=== PATIENT | female | born 1980 | race Caucasian/White ===

== ENCOUNTER 2018-04-21 11:00 | Inpatient (IN) ==
--- NOTE | 2018-04-21 11:35 | ED ---
HPI General Chief Complaint: Extremity Injury, Lower Stated Complaint: Leg Ankle Complaint Time Seen by Provider: 04/21/18 11:24 Source: patient Mode of arrival: ambulatory Limitations: no limitations History of Present Illness HPI Narrative: Patient is a 37-year-old female presenting to the emergency department for evaluation of left ankle pain. Patient went to [facility] today with the same complaint, she states she rolled her ankle on Saturday night , on Saturday she spent most of the day in bed and was nonweightbearing. When she presented to [facility] they performed x-rays which showed a distal tibia and fibula fracture, she was sent to the emergency department due to it being a possible surgical case. Patient states she has no pain at rest, she borrowed a pair of crutches from a friend in order to ambulate with. Patient denies any weakness or numbness. There were no other injuries to report. Patient denies any significant past medical history. Place: Reports home Relieving factors: immobilization Exacerbating factors: weight bearing Context: Reports walking Associated symptoms: Reports swelling and unable to bear weight Other symptoms: Reports none Treatments prior to arrival: Reports NSAIDS Related Data Home Medications Medication Instructions Recorded Confirmed No Known Home Medications 04/21/18 04/21/18 Allergies Allergy/AdvReac Type Severity Reaction Status Date / Time No Known Allergies Allergy Verified 04/21/18 11:10 Review of Systems ROS: all other systems reviewed are negative [facility] Medical History Medical History Patient denies medical problems (Acute) Surgical History Surgical History No history of previous surgery (Acute) Social History Social History Substance History: No History of Abuse Smoking Status: Light tobacco smoker Tobacco Type: Cigarettes How Often Do You Have a Drink Containing Alcohol: Monthly or less Recent Travel [facility] within the Last 8 Weeks: No Recent Out of Country Travel within the Last 8 Weeks: No Immunization History Tetanus Immunization: >5 Years Exam Narrative Exam Narrative: GENERAL: Well-developed, well-nourished, alert female. Presenting in no acute distress. SKIN: Focused skin assessment warm/dry. HEAD: Atraumatic. Normocephalic. EYES: Pupils equal and round. No scleral icterus. No injection or drainage. ENT: No nasal bleeding or discharge. Mucous membranes pink and moist. NECK: Trachea midline. No JVD. CARDIOVASCULAR: Regular rate and rhythm. No murmur appreciated. RESPIRATORY: No accessory muscle use. Clear to auscultation. Breath sounds equal bilaterally. GASTROINTESTINAL: Abdomen soft, non-tender, nondistended. Hepatic and splenic margins not palpable. MUSCULOSKELETAL: No obvious deformities. No clubbing. No cyanosis. Edema to left ankle diffusely, 2+ dorsalis pedal pulse, brisk less than 3-second capillary refill. NEUROLOGICAL: Awake and alert. No obvious cranial nerve deficits. Motor grossly within normal limits. Normal speech. PSYCHIATRIC: Appropriate mood and affect; insight and judgment normal. Course Initial Documented Vital Signs Temperature 98.3 F 04/21/18 11:05 Pulse Rate 85 04/21/18 11:05 Respiratory Rate 18 04/21/18 11:05 Blood Pressure 148/77 H 04/21/18 11:05 Pulse Oximetry 98 04/21/18 11:05 Last Documented Vital Signs Temperature 98.3 F 04/21/18 11:05 Pulse Rate 98 H 04/21/18 11:28 Respiratory Rate 16 04/21/18 11:28 Blood Pressure 123/66 04/21/18 11:28 Pulse Oximetry 99 04/21/18 11:28 Medical Decision Making MDM Narrative Medical decision making narrative: Patient is a well-appearing 37-year-old female presenting with likely ankle fracture from [facility]. Patient is neurovascularly intact. Will obtain basic labs and repeat imaging. Patient denies pain at this time. She was encouraged to notify nursing if pain worsened. Labs reviewed, no acute findings. X-ray shows a distal tibial fracture as well as a medial malleolus fracture. Discussed with Alexis ARMSTRONG with Dr. Nogueira, he stated to keep patient n.p.o. after midnight for OR tomorrow and admit to medicine. Splint was placed by orthotech. [facility] paged for admission and patient made aware of clinical findings and plan of care. Dr. Ritchie accepted admit. Orders placed. Medical Screen Exam Complete: Yes Emergency Medical Condition: Yes Differential Diagnosis Differential Diagnosis: Fracture versus sprain versus strain versus contusion versus other Lab Data Lab results reviewed: Yes I reviewed the patient's lab results. Result diagrams: 04/21/18 11:39 04/21/18 11:39 POC Results POC Urine Results Negative Lab Results 04/21/18 04/21/18 04/21/18 Range/Units 11:39 11:39 11:39 WBC 9.8 (4.0-11.0) th/mm3 RBC 4.09 (4.00-5.30) mil/mm3 Hgb 12.8 (11.6-15.3) gm/dL Hct 37.4 (35.0-46.0) % MCV 91.4 (80.0-100.0) fL MCH 31.3 (27.0-34.0) pg MCHC 34.2 (32.0-36.0) % RDW 14.0 (11.6-17.2) % Plt Count 270 (150-450) th/mm3 MPV 7.6 (7.0-11.0) fL Neut % (Auto) 70.9 H (16.0-70.0) % Lymph % (Auto) 18.5 (9.0-44.0) % Eddy % (Auto) 7.5 (0.0-8.0) % Eos % (Auto) 2.2 (0.0-4.0) % Baso % (Auto) 0.9 (0.0-2.0) % Neut # (Auto) 7.0 (1.8-7.7) th/mm3 Lymph # (Auto) 1.8 (1.0-4.8) th/mm3 Eddy # (Auto) 0.7 (0.0-0.9) th/mm3 Eos # (Auto) 0.2 (0.0-0.4) th/mm3 Baso # (Auto) 0.1 (0.0-0.2) th/mm3 WBC Differential . Differential Comment Auto diff final PT 10.0 (9.8-11.6) sec INR 1.0 Ratio APTT 29.8 (23.4-31.7) sec Sodium 139 (136-145) meq/L Potassium 4.3 (3.5-5.1) meq/L Chloride 109 H (98-107) meq/L Carbon Dioxide 24.3 (21.0-32.0) meq/L Anion Gap 6 (5-15) meq/L BUN 17 (7-18) mg/dL Creatinine 0.85 (0.50-1.00) mg/dL Estimated GFR 74 L (>89) mL/min Random Glucose 94 (74-106) mg/dL Calcium 8.0 L (8.5-10.1) mg/dL Imaging Data Radiologist's impression: Ankle X-Ray 04/21/18 11:30 CONCLUSION: Fracture medial malleolus and distal tibia presumed interosseous ligament avulsion. Foot X-Ray 04/21/18 11:39 CONCLUSION: No fracture, foot intact. Discharge Plan Discharge Disposition Patient Disposition: ED Admit(ED Internal Use Only) Discharge Condition Condition: Stable Discharge Order Discharge Orders: ED Use Only Admit Order (Routine); Ordered 04/21/18 Ordered By: Ryanne Green Discharge Details Diagnosis: Ankle fracture Physicians Team ED Provider: Franky Pacheco ED Midlevel Provider: Ryanne Green Primary Care Provider: Primary Care Jaz Rehman Rxs /Orders / Referrals /Forms Prescriptions: No Action No Known Home Medications RF: 0 Status ED Status: Admitted Patient
[2018-04-21 11:50] LABS: Baso # (Auto) 0.1 th/mm3 (0.0-0.2); Baso % (Auto) 0.9 % (0.0-2.0); Eos # (Auto) 0.2 th/mm3 (0.0-0.4); Eos % (Auto) 2.2 % (0.0-4.0); Hematocrit 37.4 % (35.0-46.0); Hemoglobin 12.8 gm/dL (11.6-15.3); Lymph # (Auto) 1.8 th/mm3 (1.0-4.8); Lymph % (Auto) 18.5 % (9.0-44.0); Mean Corpuscular HGB Conc 34.2 % (32.0-36.0); Mean Corpuscular Hemoglobin 31.3 pg (27.0-34.0); Mean Corpuscular Volume 91.4 fL (80.0-100.0); Mean Platelet Volume 7.6 fL (7.0-11.0); Mono # (Auto) 0.7 th/mm3 (0.0-0.9); Mono % (Auto) 7.5 % (0.0-8.0); Neut % (Auto) 70.9 % (16.0-70.0); Platelet Count 270 th/mm3 (150-450); Red Blood Count 4.09 mil/mm3 (4.00-5.30); White Blood Count 9.8 th/mm3 (4.0-11.0)
[2018-04-21 11:59] LABS: Activated Partial Thrombo Time 29.8 sec (23.4-31.7)
--- NOTE | 2018-04-21 12:05 | XR ---
EXAM DATE: 04/21/2018 12:01 PM EST AGE/SEX: 37 years / Female INDICATIONS: Rolled left ankle and foot 3 days ago, pain and swelling entire left ankle and foot CLINICAL DATA: This is the patient's initial encounter. Patient reports that signs and symptoms have been present for 3 days and indicates a pain score of 10/10. MEDICAL/SURGICAL HISTORY: None. None. COMPARISON: [facility] COMPLETE LEFT 3V, 04/21/2018. . FINDINGS: Fracture of the medial malleolus with a spiral fracture of the distal fibula 10 cm above the tibial p arlene. There is also fracture of the lateral of the tibial plafond probably from interosseous ligame nt avulsion anterior fracture fragment with it. Posterior lip of the tibial plafond is intact. CONCLUSION: Fracture medial malleolus and distal tibia presumed interosseous ligament avulsion. Electronically signed by: Malvin Gar MD 04/21/2018 12:04 PM EST
[2018-04-21 12:08] LABS: Carbon Dioxide 24.3 meq/L (21.0-32.0); Potassium 4.3 meq/L (3.5-5.1)
--- NOTE | 2018-04-21 12:14 | XR ---
EXAM DATE: 04/21/2018 12:03 PM EST AGE/SEX: 37 years / Female INDICATIONS: Rolled left ankle and foot 3 days ago, pain and swelling entire left ankle and foot CLINICAL DATA: This is the patient's initial encounter. Patient reports that signs and symptoms have been present for 3 days and indicates a pain score of 10/10. MEDICAL/SURGICAL HISTORY: None. None. COMPARISON: [facility], ANKLE COMPLETE LEFT MIN 3V, 04/21/2018. . FINDINGS: The foot is intact. Talus and calcaneus are normal. Ankle fractures again identified. CONCLUSION: No fracture, foot intact. Electronically signed by: Malvin Gar MD 04/21/2018 12:13 PM EST
[2018-04-21] MEDS ORDERED: Acetaminophen 325 MG Tablet PO PRN (15:11)
[2018-04-21] MEDS ORDERED: Morphine Inj 4 MG/ML Vial IV.PUSH PRN (15:15)
--- NOTE | 2018-04-21 16:26 | P.HPIM ---
History of Present Illness Primary Care Physician: No Primary Care Physician Chief Complaint: ankle pain unable to bear weight History of Present Illness: This is a 37 year old female patient who denies prior medical history presents to the ER for evaluation of left ankle pain. Patient reports that she was wearing high heels at a [employer] republic[employer] and thought that rolled her ankle on Saturday night, on Saturday she spent most of the day. When she presented to [facility] they performed x-rays which showed a distal tibia and fibula fracture, she was sent to the emergency department due to it being a possible surgical case. Patient only has pain with weight bearing. Patient states she has no pain at rest, she borrowed a pair of crutches from a friend in order to ambulate with. Patient denies any weakness or numbness. There were no other injuries to report. Patient denies shortness of breath, N/V/D/C, fevers or chills. Ankle X-Ray 04/21/18racture medial malleolus and distal tibia presumed interosseous ligament avulsion. Foot X-Ray 04/21/18 No fracture, foot intact. PMH: denies prior medical history PSxH: denies prior surgeries Social history: occasional/social ETOH use, current tobacco use 1/2 pack or less per day for 20 + years FMH: reviewed and noncontributory Inpatient Certification Inpatient Certification: I certify that the inpatient services were ordered in accordance with Medicare regulations governing the order. This includes certification that hospital inpatient services are reasonable and necessary and in the case of services not specified as inpatient-only under 42 CFR 419.22(n), that they are appropriately provided as inpatient services in accordance to with the 2-midnight benchmark under 43 CFR 412.3(e) Estimated Total Length of Stay (Days): 3 Plans for Post Hospital Care: Not yet determined Medications and Allergies Allergies Allergy/AdvReac Type Severity Reaction Status Date / Time No Known Allergies Allergy Verified 04/21/18 11:10 Home Medications Medication Instructions Recorded Confirmed Type No Known Home Medications 04/21/18 04/21/18 History Active Medications: Active Medications Acetaminophen (Tylenol) 650 mg PO Q4H PRN PRN Reason: Temp > 100.4 Hydrocodone Bitart/Acetaminophen ([place] 7.5/325) 1 tab PO Q4H PRN PRN Reason: PAIN SCALE 1 TO 10 Al Hydroxide/Mg Hydroxide (Milk Of Juanito Schwartz) 30 ml PO Q12H PRN PRN Reason: Mild Constipation Morphine Sulfate (Morphine Inj) 4 mg IV.PUSH Q4H PRN PRN Reason: BREAKTHROUGH PAIN Ondansetron HCl (Zofran Inj) 4 mg IV.PUSH Q6H PRN PRN Reason: NAUSEA OR VOMITING Senna/Docusate Sodium (Dolly-Colace) 1 tab PO BID GIOVANA Sodium Chloride (Ns Flush) 2 ml IV.FLUSH BID GIOVANA Sodium Chloride (Ns Flush) 2 ml IV.FLUSH PRN PRN PRN Reason: FLUSH AFTER USING IV ACCESS Physical Exam Vital signs: Last Vital Signs Temp 98.3 F 04/21/18 11:05 Pulse 98 H 04/21/18 11:28 Resp 16 04/21/18 11:28 BP 123/66 04/21/18 11:28 Pulse Ox 99 04/21/18 11:28 Narrative: GENERAL: This is a well-nourished, well-developed patient, in no apparent distress. CARDIOVASCULAR: Regular rate and rhythm . RESPIRATORY: Clear to auscultation. Breath sounds equal bilaterally. GASTROINTESTINAL: Abdomen soft, non-tender, nondistended. Normal active bowel sounds MUSCULOSKELETAL: LLE in an immobilizing splint NEURO: Alert & Oriented x4 to person, place, time, situation. Moves all ext x4 Results Labs CBC & Chem 7: 04/21/18 11:39 04/21/18 11:39 Caprini VTE Risk Assessment Caprini VTE Risk Assessment: Moderate/High Risk (score >= 2) Caprini Risk Assessment Model: Point Value = 1 Point Value = 2 Point Value = 3 Point Value = 5 Age 41-60 Minor surgery BMI > 25 kg/m2 Swollen legs Varicose veins or History of unexplained or recurrent spontaneous Oral contraceptives or hormone replacement Sepsis (< 1 month) Serious lung disease, including pneumonia (< 1 month) Abnormal pulmonary function Acute myocardial infarction Congestive heart failure (< 1 month) History of inflammatory bowel disease Medical patient at bed rest Age 61-74 Arthroscopic surgery Major open surgery (> 45 min) Laparoscopic surgery (> 45 min) Malignancy Confined to bed (> 72 hours) Immobilizing plaster cast Central venous access Age >= 75 History of VTE Family history of VTE Factor V Leiden Prothrombin [id number] Lupus anticoagulant Anticardiolipin antibodies Elevated serum homocysteine Heparin-induced thrombocytopenia Other congenital or acquired thrombophilia Stroke (< 1 month) Elective arthroplasty Hip, pelvis, or leg fracture Acute spinal cord injury (< 1 month) Prophylaxis Regimen: Total Risk Factor Score Risk Level Prophylaxis Regimen 0-1 Low Early ambulation 2 Moderate Order ONE of the following: *Sequential Compression Device (SCD) *Heparin 5000 units SQ BID 3-4 Higher Order ONE of the following medications: *Heparin 5000 units SQ TID *Enoxaparin/Lovenox 40 mg SQ daily (WT < 150 kg, CrCl > 30 mL/min) *Enoxaparin/Lovenox 30 mg SQ daily (WT < 150 kg, CrCl > 10-29 mL/min) *Enoxaparin/Lovenox 30 mg SQ BID (WT < 150 kg, CrCl > 30 mL/min) AND/OR *Sequential Compression Device (SCD) 5 or more Highest Order ONE of the following medications: *Heparin 5000 units SQ TID (Preferred with Epidurals) *Enoxaparin/Lovenox 40 mg SQ daily (WT < 150 kg, CrCl > 30 mL/min) *Enoxaparin/Lovenox 30 mg SQ daily (WT < 150 kg, CrCl > 10-29 mL/min) *Enoxaparin/Lovenox 30 mg SQ BID (WT < 150 kg, CrCl > 30 mL/min) AND *Sequential Compression Device (SCD) Assessment and Plan Plan This is a 37 year old female patient who denies prior medical history presents to the ER for evaluation of left ankle pain. Patient reports that she was wearing high heels at a [employer] republic[employer] and thought that rolled her ankle on Saturday night, on Saturday she spent most of the day. [facility] performed x-rays which showed a distal tibia and fibula fracture, she was sent to the emergency department due to it being a possible surgical case. Patient only has pain with weight bearing. Patient states she has no pain at rest, she borrowed a pair of crutches from a friend in order to ambulate with. Patient denies any weakness or numbness. There were no other injuries to report. Left fracture medial malleolus and distal tibia Ankle X-Ray 04/21/18Fracture medial malleolus and distal tibia presumed interosseous ligament avulsion. Foot X-Ray 04/21/18 No fracture, foot intact. ER provider discussed with Orthopedic surgery NPO after midnight for surgery in AM [place] and Morphine as needed for pain Supportive care DVT prophylaxis SCD on right leg, chemical DVT prophylaxis per orthopedic surgery Attending Attestation Patient examined. Assessment and plan formulated with Rona Benson PA-C. I agree with the above. TIB/FIB FX. ORTHO CONSULTED FOR SURGERY TOMORROW. DC WHEN OK WITH ORTHO. OK TO PROCEED WITH PLANNED SURGERY.
[2018-04-21] MEDS: Senna/Docusate Sodium 8.6/50 MG Tablet PO SCH (20:47)
[2018-04-22] MEDS ORDERED: Chlorhexidine Gluconate 2% 1 Pack (2 Cloths) TOPICAL ONE (04:42)
[2018-04-22] MEDS ORDERED: Sodium Chlor 0.9% Inj 500 ML IV.SIG SCH (05:00)
[2018-04-22 05:35] LABS: Baso % (Auto) 0.5 % (0.0-2.0); Eos # (Auto) 0.4 th/mm3 (0.0-0.4); Eos % (Auto) 4.2 % (0.0-4.0); Hematocrit 34.3 % (35.0-46.0); Hemoglobin 11.6 gm/dL (11.6-15.3); Lymph # (Auto) 2.8 th/mm3 (1.0-4.8); Lymph % (Auto) 33.2 % (9.0-44.0); Mean Corpuscular HGB Conc 33.9 % (32.0-36.0); Mean Corpuscular Hemoglobin 30.9 pg (27.0-34.0); Mean Corpuscular Volume 91.3 fL (80.0-100.0); Mean Platelet Volume 8.1 fL (7.0-11.0); Mono # (Auto) 0.7 th/mm3 (0.0-0.9); Mono % (Auto) 8.7 % (0.0-8.0); Neut # (Auto) 4.4 th/mm3 (1.8-7.7); Neut % (Auto) 53.4 % (16.0-70.0); Platelet Count 235 th/mm3 (150-450); Red Blood Count 3.76 mil/mm3 (4.00-5.30); Red Cell Distribution Width 14.2 % (11.6-17.2); White Blood Count 8.3 th/mm3 (4.0-11.0)
[2018-04-22 06:03] LABS: Calcium 7.5 mg/dL (8.5-10.1); Carbon Dioxide 27.6 meq/L (21.0-32.0); Potassium 4.7 meq/L (3.5-5.1)
--- NOTE | 2018-04-22 06:37 | P.PNOP ---
Subjective Interval history: Fall in high heels with pain and swelling to left ankle. No other complaints Physical Exam Vital signs: Vital Signs 04/21/18 11:05 04/21/18 11:28 04/21/18 15:10 Temperature 98.3 F Pulse Rate 85 98 H 70 Respiratory Rate 18 16 16 Blood Pressure 148/77 H 123/66 110/61 Pulse Oximetry 98 99 98 04/21/18 18:37 04/21/18 20:00 04/22/18 00:00 Temperature 98.0 F 98.2 F Pulse Rate 66 82 74 Respiratory Rate 14 18 18 Blood Pressure 120/79 108/61 110/59 L Pulse Oximetry 100 97 96 Intake & Output 04/21/18 04/21/18 04/22/18 06:59 18:59 06:59 Weight 97.522 kg 116.4 kg Other: Weight On Admission 116.4 kg Narrative: Left lower extremity: Splint intact with ice cuff in place. Intact sensation all toes with good capillary refills. No pain with hip or knee range of motion. Results - Labs CBC & Chem 7: 04/22/18 04:22 04/22/18 04:22 Laboratory Results - last 24 hr 04/21/18 04/21/18 04/21/18 11:39 11:39 11:39 WBC 9.8 RBC 4.09 Hgb 12.8 Hct 37.4 MCV 91.4 MCH 31.3 MCHC 34.2 RDW 14.0 Plt Count 270 MPV 7.6 Neut % (Auto) 70.9 H Lymph % (Auto) 18.5 Summers % (Auto) 7.5 Eos % (Auto) 2.2 Baso % (Auto) 0.9 Neut # (Auto) 7.0 Lymph # (Auto) 1.8 Summers # (Auto) 0.7 Eos # (Auto) 0.2 Baso # (Auto) 0.1 WBC Differential . Differential Comment Auto diff final PT 10.0 INR 1.0 APTT 29.8 Sodium 139 Potassium 4.3 Chloride 109 H Carbon Dioxide 24.3 Anion Gap 6 BUN 17 Creatinine 0.85 Estimated GFR 74 L Random Glucose 94 Calcium 8.0 L 04/22/18 04/22/18 04:22 04:22 WBC 8.3 RBC 3.76 L Hgb 11.6 Hct 34.3 L MCV 91.3 MCH 30.9 MCHC 33.9 RDW 14.2 Plt Count 235 MPV 8.1 Neut % (Auto) 53.4 Lymph % (Auto) 33.2 Summers % (Auto) 8.7 H Eos % (Auto) 4.2 H Baso % (Auto) 0.5 Neut # (Auto) 4.4 Lymph # (Auto) 2.8 Summers # (Auto) 0.7 Eos # (Auto) 0.4 Baso # (Auto) 0.0 WBC Differential . Differential Comment Auto diff final PT INR APTT Sodium 143 Potassium 4.7 Chloride 110 H Carbon Dioxide 27.6 Anion Gap 5 BUN 13 Creatinine 0.80 Estimated GFR 80 L Random Glucose 92 Calcium 7.5 L - Imaging Impressions Ankle X-Ray 04/21/18 11:30 CONCLUSION: Fracture medial malleolus and distal tibia presumed interosseous ligament avulsion. Foot X-Ray 04/21/18 11:39 CONCLUSION: No fracture, foot intact. Assessment and Plan - Assessment and Plan Left ankle fracture with syndesmosis rupture Maintain splint Nonweightbearing left lower extremity N.p.o. Sign consents Surgery this morning with Dr. Nogueira for open reduction internal fixation of the left ankle. Plan follow-up appointment in [address] Nogueira or PA May be discharged this afternoon if doing well with pain
[2018-04-22] MEDS ORDERED: ceFAZolin 1 GM Premix Inj 2 GM/100 ML PIGGYBACK IV.SIG ONE (07:01)
[2018-04-22] MEDS ORDERED: Morphine Inj 4 MG/ML Vial IV.PUSH PRN ×2 (08:43→09:39)
--- NOTE | 2018-04-22 08:48 | P.OP ---
- Preoperative Diagnosis (1) Closed trimalleolar fracture of left ankle Date of procedure: 04/22/18 Procedure: Open reduction internal fixation left ankle trimalleolar fracture, open reduction to fixation left ankle syndesmosis Anesthesia: GETA Surgeon: Samson Petty MD Certified Prosthetist Vice President: MOE Alexis PA-C The surgical procedure was assisted by my physician catering assistant. My P.A. presence was necessary throughout this case for the manipulation and positioning of the surgical extremity. My P.A. was assisting me throughout the duration of this procedure. The skill set of a physician catering assistant was medically necessary to complete this procedure. During the surgical case the manufacturing lab technician was working at the back table and the physician catering assistant was directly assisting me. Operation and Findings: Implants used: ITS Plan of activity: Nonweightbearing Details of procedure: Patient was seen and evaluated preoperatively and found to have a displaced left trimalleolar ankle fracture. Informed consent was obtained after a detailed discussion of risk and benefits of surgery. The operative site was marked. Patient was brought to the OR, placed on the OR table, and given IV sedation and general endotracheal anesthesia. IV antibiotics were given preoperatively. A timeout procedure was performed. The left leg was prepped with alcohol followed by Hibiclens and draped in the usual sterile fashion. Attention was turned towards the distal fibula. A 6-inch incision was made over the distal fibula. The subcutaneous tissue was dissected with Bovie. The fracture site was visualized. The fracture site was cleaned with curets. The fracture was now reduced. The fracture keyed into anatomic alignment. Fracture tenaculums and K-wires were used to hold provisional fixation. A plate was selected. The plate was provisionally held to bone with K-wires. 3.5 cortical screws were used to compress the plate to bone. Multiple screws were placed above and below the fracture. Next attention was turned towards the medial malleolus. The medial malleolus supposed through a 3 in incision. Saphenous vein was retracted. Fracture was visualized. Fracture was cleaned with curettes. Fracture was now reduced and keyed into anatomic alignment. K wires were used to hold provisional fixation. 2 guidepins for the 4.0 cannulated screws were placed in a retrograde fashion across the fracture. Fluoroscopy was used to confirm guidepin placement. Cannulated drill was placed over the guidepin. 2 appropriate length screws were now placed. Good compression was applied. Fluoroscopy confirmed well aligned fracture with well-placed hardware. Next, attention was turned to the syndesmosis. The syndesmosis was stressed. There was widening of the syndesmosis with external rotation of the ankle. Patient was noted to have an avulsion off the anterior distal tibia along the attachment of the syndesmotic ligaments. This fragment was reduced. K wire was used to hold provisional fixation. A spiked washer was placed over this fragment. A 4.0 cannulated screw was placed to the spike washer to stabilize this fragment. The syndesmosis was held in a reduced position with the ankle in neutral position. Two cortical screws were now placed through the fibula plate into the tibia. Fluoroscopy confirmed appropriate screw placement with well-aligned syndesmosis. Incisions were thoroughly irrigated. The subcutaneous tissue was closed with 3-0 Vicryl and the skin was closed with 3-0 nylon. Sterile dressings were applied. A well molded well-padded splint was applied. The patient was transferred to Recovery in stable condition. Needle and sponge counts were correct.
--- NOTE | 2018-04-22 08:52 | P.CONOP ---
[facility] Orthopedics Consult Note - [facility] Consult date: 04/22/18 Chief complaint: Medical malleolus distal tibia fracture Narrative: Venkatesh is a 37-year-old female. She presented to the emergency room complaining of left ankle pain. She is at a [employer]. She stepped on an uneven area outside. She twisted her ankle. She had immediate left ankle pain and swelling. She initially thought it was just a sprain. X-rays in the emergency room revealed a displaced left ankle bimalleolar fracture. She is currently awake alert on the orthopedic floor. Her only complaint is her left ankle. She denies dizziness, syncope, or loss of consciousness. Pain is worse with movement or weightbearing. Pain is improved with rest. Review of Systems Patient denies fevers, chills, weight loss, headache, visual changes, hearing loss, chest pain, palpitations, shortness of breath, nausea, vomiting, no urinary changes, diarrhea, bowel changes, neck pain, back pain, skin rashes, weakness of extremities, easy bleeding, enlarged lymph nodes, numbness of extremities, anxiety, or depression. She complains of left ankle pain Patient's social history, past medical history, and family history were reviewed on chart and with patient. [facility] - History History Provided By: Patient - Medical History Medical History: Medical History (Last Reviewed 04/22/18 @ 08:49 by Samson Petty MD) Patient denies medical problems - Surgical History Surgical History: Surgical History (Last Reviewed 04/22/18 @ 08:49 by Samson Petty MD) No history of previous surgery - Family History Family History: Family History (Last Updated 04/22/18 @ 08:50 by Samson Petty MD) Other Family history non-contributory - Social History I have reviewed the patient's Social History: Yes - Tobacco History Second Hand Smoke Exposure: No Tobacco Use In Past 30 Days: Yes Smoking Status: Light tobacco smoker Tobacco Type: Cigarettes - Alcohol History How Often Do You Have a Drink Containing Alcohol: Monthly or less - Substance Use History Substance History: No History of Abuse - Travel History Recent Travel in the [facility] Within the Last 8 Weeks: No Recent Travel Out of the Country Within the Last 8 Weeks: No - Immunization History Tetanus Immunization: >5 Years Medications and Allergies Active Medications: Active Medications Acetaminophen (Tylenol) 650 mg PO Q4H PRN PRN Reason: Temp > 100.4 Hydrocodone Bitart/Acetaminophen ([place] 7.5/325) 1 tab PO Q4H PRN PRN Reason: PAIN SCALE 1 TO 10 Last Admin: 04/21/18 20:58 Dose: 1 tab Hydrocodone Bitart/Acetaminophen ([place] 10/325) 1 tab PO Q3H PRN PRN Reason: Pain Scale 3 to 10 Al Hydroxide/Mg Hydroxide (Milk Of Magnesia Liq) 30 ml PO Q12H PRN PRN Reason: Mild Constipation Lactated Ringer's (Lr 1000 Ml Inj) 1,000 mls @ 30 mls/hr IV.SIG .Q24H GIOVANA Stop: 04/23/18 04:44 Sodium Chloride (Ns Inj) 500 mls @ 30 mls/hr IV.SIG .Q10H GIOVANA Lactated Ringer's (Lr 1000 Ml Inj) 1,000 mls @ 50 mls/hr IV.CONT .Q20H GIOVANA Morphine Sulfate (Morphine Inj) 4 mg IV.PUSH Q4H PRN PRN Reason: BREAKTHROUGH PAIN Last Admin: 04/21/18 18:05 Dose: 4 mg Morphine Sulfate (Morphine Inj) 3 mg IV.PUSH Q3H PRN PRN Reason: Pain Ondansetron HCl (Zofran Inj) 4 mg IV.PUSH Q6H PRN PRN Reason: NAUSEA OR VOMITING Last Admin: 04/21/18 18:05 Dose: 4 mg Senna/Docusate Sodium (Dolly-Colace) 1 tab PO BID [facility] Last Admin: 04/21/18 20:47 Dose: 1 tab Sodium Chloride (Ns Flush) 2 ml IV.FLUSH BID [facility] Last Admin: 04/21/18 20:48 Dose: 2 ml Sodium Chloride (Ns Flush) 2 ml IV.FLUSH PRN PRN PRN Reason: FLUSH AFTER USING IV ACCESS Allergies Allergy/AdvReac Type Severity Reaction Status Date / Time No Known Allergies Allergy Verified 04/21/18 11:10 Home Medications Medication Instructions Recorded Confirmed Type No Known Home Medications 04/21/18 04/21/18 History Exam Vital signs: Vital Signs 04/21/18 11:05 04/21/18 11:28 04/21/18 15:10 Temperature 98.3 F Pulse Rate 85 98 H 70 Respiratory Rate 18 16 16 Blood Pressure 148/77 H 123/66 110/61 Pulse Oximetry 98 99 98 04/21/18 18:37 04/21/18 20:00 04/22/18 00:00 Temperature 98.0 F 98.2 F Pulse Rate 66 82 74 Respiratory Rate 14 18 18 Blood Pressure 120/79 108/61 110/59 L Pulse Oximetry 100 97 96 Intake & Output 04/21/18 04/22/18 04/22/18 18:59 06:59 18:59 Weight 97.522 kg 116.2 kg Other: # Voids 0 Weight On Admission 116.4 kg Narrative: Daphne is a pleasant 37-year-old female. General: Awake and alert. No acute distress. Appears well-developed well- nourished Head: Normocephalic, atraumatic pupils are equal Neck: Soft, nontender, trachea midline Abdomen: Soft, nondistended Examination of right arm reveals no pain or deformity with shoulder, elbow, or wrist motion. Skin is intact. Radial pulse is palpable. Normal capillary refill in fingers. Sensation is intact in radial, ulnar, and median nerve distributions. 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 No lymphadenopathy noted. Examination of left arm reveals no pain or deformity with shoulder, elbow, or wrist motion. Skin is intact. Radial pulse is palpable. Normal capillary refill in fingers. Sensation is intact in radial, ulnar, and median nerve distributions. 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 No lymphadenopathy noted. Examination of left lower extremity reveals no pain or deformity with hip or knee motion. She has tenderness to palpation over the medial and lateral ankle. There is mild swelling. Skin is intact. Sensation is intact in left foot. Dorsalis pedis pulse is palpable. Normal capillary refill and feet. Thigh and calf compartments are soft. No lymphadenopathy noted. Examination of right lower extremity reveals no pain or deformity with hip, knee , or ankle motion. Skin is intact. Sensation is intact in right foot. Dorsalis pedis pulse is palpable. Normal capillary refill and feet. Thigh and calf compartments are soft. No lymphadenopathy noted. +5 strength of ankle dorsiflexion and plantarflexion. Results - Labs Result Diagrams: 04/22/18 04:22 04/22/18 04:22 Labs: Laboratory Results - last 24 hr 04/21/18 04/21/18 04/21/18 11:39 11:39 11:39 WBC 9.8 RBC 4.09 Hgb 12.8 Hct 37.4 MCV 91.4 MCH 31.3 MCHC 34.2 RDW 14.0 Plt Count 270 MPV 7.6 Neut % (Auto) 70.9 H Lymph % (Auto) 18.5 [place] % (Auto) 7.5 Eos % (Auto) 2.2 Baso % (Auto) 0.9 Neut # (Auto) 7.0 Lymph # (Auto) 1.8 [place] # (Auto) 0.7 Eos # (Auto) 0.2 Baso # (Auto) 0.1 WBC Differential . Differential Comment Auto diff final PT 10.0 INR 1.0 APTT 29.8 Sodium 139 Potassium 4.3 Chloride 109 H Carbon Dioxide 24.3 Anion Gap 6 BUN 17 Creatinine 0.85 Estimated GFR 74 L Random Glucose 94 Calcium 8.0 L 04/22/18 04/22/18 04:22 04:22 WBC 8.3 RBC 3.76 L Hgb 11.6 Hct 34.3 L MCV 91.3 MCH 30.9 MCHC 33.9 RDW 14.2 Plt Count 235 MPV 8.1 Neut % (Auto) 53.4 Lymph % (Auto) 33.2 [place] % (Auto) 8.7 H Eos % (Auto) 4.2 H Baso % (Auto) 0.5 Neut # (Auto) 4.4 Lymph # (Auto) 2.8 [place] # (Auto) 0.7 Eos # (Auto) 0.4 Baso # (Auto) 0.0 WBC Differential . Differential Comment Auto diff final PT INR APTT Sodium 143 Potassium 4.7 Chloride 110 H Carbon Dioxide 27.6 Anion Gap 5 BUN 13 Creatinine 0.80 Estimated GFR 80 L Random Glucose 92 Calcium 7.5 L - Diagnostic results Imaging: Impressions Ankle X-Ray 04/21/18 11:30 CONCLUSION: Fracture medial malleolus and distal tibia presumed interosseous ligament avulsion. Foot X-Ray 04/21/18 11:39 CONCLUSION: No fracture, foot intact. Ankle/Foot x-ray: report reviewed, image reviewed Assessment and Plan - Assessment and Plan Daphne has a displaced left ankle bimalleolar fracture. She likely has syndesmosis disruption as well. Treatment options were discussed. At this point I would recommend surgery for open reduction internal fixation of left ankle fractures. The risk and benefits of surgery discussed in depth with patient. All questions were answered. The risk and benefits of surgery were discussed in depth with patient. The risk of surgery include bleeding, infection, injuries to arteries, nerves, or blood vessels, infection, wound complications, nonunion, malunion, painful hardware, and need for further surgery. I also discussed medical complications including blood clots, pneumonia, stroke, heart attack, and . Informed consent was obtained and all questions were answered. N.p.o.--plan on surgery this morning Calcium and vitamin D supplementation Physical therapy consult--nonweightbearing Elevate left foot Follow-up with Dr. Petty in 2 weeks SCDHUMAIRA martinez A mid-level provider in my office (nurse practitioner or physician assistant counsel) may see this patient on follow-up visits and continue to implement the objectives of this plan including: Starting or adjusting medications, injections , cast application, orthotics, brace application, physical therapy, radiological studies (including x-ray, MRI, CT, ultrasound, bone scan), vascular studies, neurologic studies, specialist consultation, and proceeding with surgical management, as appropriate.
[2018-04-22] MEDS: Senna/Docusate Sodium 8.6/50 MG Tablet PO SCH (09:00)
--- NOTE | 2018-04-22 09:32 | ECG ---
Date Performed: 04/21/2018 Time Performed: 14:36:27 PTAGE: 37 years EKG: Sinus rhythm NORMAL ECG NO PREVIOUS TRACING DOCTOR: Jonathon Del Cid Interpretating Date/Time 04/22/2018 09:30:40
[2018-04-22] MEDS ORDERED: fentaNYL Citrate Inj 100 MCG/2 ML Ampul ONE (09:33)
[2018-04-22] MEDS ORDERED: *morphine SULFATE 4 MG/ML PERIprocedure ONLY ONE ×2 (09:33→09:48)
--- NOTE | 2018-04-22 09:37 | ECG ---
Date Performed: 04/21/2018 Time Performed: 13:49:23 PTAGE: 37 years EKG: Sinus rhythm WITH SINUS ARRHYTHMIA NONSPECIFIC ST & T-WAVE ABNORMALITY BORDERLINE ECG NO PREVIOUS TRACING DOCTOR: Jonathon Del Cid Interpretating Date/Time 04/22/2018 09:35:47
--- NOTE | 2018-04-22 09:52 | P.PNOP ---
Subjective Interval history: POD 0 s/p ORIF left ankle stable in pacu Physical Exam Vital signs: Vital Signs 04/21/18 11:05 04/21/18 11:28 04/21/18 15:10 Temperature 98.3 F Pulse Rate 85 98 H 70 Respiratory Rate 18 16 16 Blood Pressure 148/77 H 123/66 110/61 Pulse Oximetry 98 99 98 04/21/18 18:37 04/21/18 20:00 04/22/18 00:00 Temperature 98.0 F 98.2 F Pulse Rate 66 82 74 Respiratory Rate 14 18 18 Blood Pressure 120/79 108/61 110/59 L Pulse Oximetry 100 97 96 04/22/18 09:24 Temperature 98 F Pulse Rate 97 H Respiratory Rate 18 Blood Pressure 126/77 Pulse Oximetry 93 L Intake & Output 04/21/18 04/22/18 04/22/18 18:59 06:59 18:59 Intake Total 600 / 600 Output Total 50 / 50 Balance 550 / 550 Weight 97.522 kg 116.2 kg Intake: Anesthesia Amount 600 / 600 Output: Estimated Blood Loss 50 / 50 Other: # Voids 0 Weight On Admission 116.4 kg Narrative: LLE: +short leg splint. intact. NVI Results - Labs CBC & Chem 7: 04/22/18 04:22 04/22/18 04:22 Laboratory Results - last 24 hr 04/21/18 04/21/18 04/21/18 11:39 11:39 11:39 WBC 9.8 RBC 4.09 Hgb 12.8 Hct 37.4 MCV 91.4 MCH 31.3 MCHC 34.2 RDW 14.0 Plt Count 270 MPV 7.6 Neut % (Auto) 70.9 H Lymph % (Auto) 18.5 [place] % (Auto) 7.5 Eos % (Auto) 2.2 Baso % (Auto) 0.9 Neut # (Auto) 7.0 Lymph # (Auto) 1.8 [place] # (Auto) 0.7 Eos # (Auto) 0.2 Baso # (Auto) 0.1 WBC Differential . Differential Comment Auto diff final PT 10.0 INR 1.0 APTT 29.8 Sodium 139 Potassium 4.3 Chloride 109 H Carbon Dioxide 24.3 Anion Gap 6 BUN 17 Creatinine 0.85 Estimated GFR 74 L Random Glucose 94 Calcium 8.0 L 04/22/18 04/22/18 04:22 04:22 WBC 8.3 RBC 3.76 L Hgb 11.6 Hct 34.3 L MCV 91.3 MCH 30.9 MCHC 33.9 RDW 14.2 Plt Count 235 MPV 8.1 Neut % (Auto) 53.4 Lymph % (Auto) 33.2 [place] % (Auto) 8.7 H Eos % (Auto) 4.2 H Baso % (Auto) 0.5 Neut # (Auto) 4.4 Lymph # (Auto) 2.8 [place] # (Auto) 0.7 Eos # (Auto) 0.4 Baso # (Auto) 0.0 WBC Differential . Differential Comment Auto diff final PT INR APTT Sodium 143 Potassium 4.7 Chloride 110 H Carbon Dioxide 27.6 Anion Gap 5 BUN 13 Creatinine 0.80 Estimated GFR 80 L Random Glucose 92 Calcium 7.5 L - Imaging Impressions Ankle X-Ray 04/21/18 11:30 CONCLUSION: Fracture medial malleolus and distal tibia presumed interosseous ligament avulsion. Foot X-Ray 04/21/18 11:39 CONCLUSION: No fracture, foot intact. Assessment and Plan - Assessment and Plan 1) Left Trimalleolar Ankle Fx s/p ORIF - POD 0 -NWB -elevate -maintain splint at all times -PT to eval today. if doing well, ortho clear for DC home -f/u with Emiliana or PATTI in 2 weeks [facility] Prescription Drug Monitoring Database has been queried and verified prior to prescribing the controlled substance. Acute pain exception. This patient has normal, predicted, physiological, and time limited response to an adverse mechanical stimulus associated with surgery, trauma, or acute illness as described in my notes. There is a lack of alternative treatment options other than to include the prescribed narcotic treatment for this condition.
--- NOTE | 2018-04-22 12:55 | XR ---
EXAM DATE: 04/22/2018 12:47 PM EST AGE/SEX: 37 years / Female INDICATIONS: Status post open ridge internal fixation of multiple ankle fractures. CLINICAL DATA: This is the patient's initial encounter. Patient reports that signs and symptoms have been present for 1 day and indicates a pain score of Nonresponsive. MEDICAL/SURGICAL HISTORY: None. None. COMPARISON: [facility], ANKLE COMPLETE LEFT MIN 3V, 04/21/2018. . FINDINGS: Multiple views of the ankle were obtained and demonstrate the patient is status post open rigid inter nal fixation with placement of a screw plate fixation device along the distal fibular fracture which is in anatomic alignment. There has been placement of 2 lag type screws through the medial malleolus as well as an additional screw transversely through the distal tibia. The fracture fragments are in n ear-anatomic alignment. The ankle mortise is growing. There is overlying soft tissue swelling. CONCLUSION: Status post open ridge internal fixation. Electronically signed by: Javy Baxter MD 04/22/2018 12:54 PM EST
--- NOTE | 2018-04-22 14:19 | P.DS ---
DS: Providers Date of admission: 04/21/18 13:23 Primary care physician: No Primary Care Physician Consults: 04/21/18 15:13 Consult to Orthopedic Surgery Routine Consulting Provider: Samson Nogueira Reason for Consultation: distal tibial fracture as well as a medial malleolus fracture. ER provider spoke with Dr. Nogueira Notified:: Office Spoke with:: SHEYLA Date Notified:: 04/21/18 Time Notified:: 15:15 Ordering Provider: TABITHA Brief History from admission: This is a 37 year old female patient who denies prior medical history presents to the ER for evaluation of left ankle pain. Patient reports that she was wearing high heels at a [employer] party and thought that rolled her ankle on Saturday night, on Saturday she spent most of the day. When she presented to [facility] they performed x-rays which showed a distal tibia and fibula fracture, she was sent to the emergency department due to it being a possible surgical case. Patient only has pain with weight bearing. Patient states she has no pain at rest, she borrowed a pair of crutches from a friend in order to ambulate with. Patient denies any weakness or numbness. There were no other injuries to report. Patient denies shortness of breath, N/V/D/C, fevers or chills. Ankle X-Ray 04/21/18racture medial malleolus and distal tibia presumed interosseous ligament avulsion. Foot X-Ray 04/21/18 No fracture, foot intact. PMH: denies prior medical history PSxH: denies prior surgeries Social history: occasional/social ETOH use, current tobacco use 1/2 pack or less per day for 20 + years FMH: reviewed and noncontributory DS: Summary This is a 37 year old female patient who denies prior medical history presents to the ER for evaluation of left ankle pain. Patient reports that she was wearing high heels at a [employer] party and thought that rolled her ankle on Saturday night, on Saturday she spent most of the day. When she presented to [facility] they performed x-rays which showed a distal tibia and fibula fracture, she was sent to the emergency department due to it being a possible surgical case. Patient only has pain with weight bearing. Patient states she has no pain at rest, she borrowed a pair of crutches from a friend in order to ambulate with. Patient denies any weakness or numbness. There were no other injuries to report. Left Closed trimalleolar fracture of left ankle Ankle X-Ray 04/21/18Fracture medial malleolus and distal tibia presumed interosseous ligament avulsion. Foot X-Ray 04/21/18 No fracture, foot intact. ER provider discussed with Orthopedic surgery S/P Open reduction internal fixation left ankle trimalleolar fracture, open reduction to fixation left ankle syndesmosis 04/22/[address] Nogueira Cleared for DC per orthopedic surgery PT consulted [place] as needed for pain Supportive care Hypocalcemia DC on calcium/vit D supplement BID establish and follow up with PCP after DC Time Spent with Patient Total time spent providing and/or coordinating discharge services: Quality: VTE Deep Vein Thrombosis/Pulmonary Embolism Present on Admission: No Exam Narrative Exam Narrative: GENERAL: This is a well-nourished, well-developed patient, in no apparent distress. CARDIOVASCULAR: Regular rate and rhythm . RESPIRATORY: Clear to auscultation. Breath sounds equal bilaterally. GASTROINTESTINAL: Abdomen soft, non-tender, nondistended. Normal active bowel sounds MUSCULOSKELETAL: LLE in an immobilizing splint NEURO: Alert & Oriented x4 to person, place, time, situation. Moves all ext x4 Results Labs on day of discharge: Labs from last 24 hours 04/22/18 04/22/18 04:22 04:22 WBC 8.3 RBC 3.76 L Hgb 11.6 Hct 34.3 L MCV 91.3 MCH 30.9 MCHC 33.9 RDW 14.2 Plt Count 235 MPV 8.1 Neut % (Auto) 53.4 Lymph % (Auto) 33.2 [place] % (Auto) 8.7 H Eos % (Auto) 4.2 H Baso % (Auto) 0.5 Neut # (Auto) 4.4 Lymph # (Auto) 2.8 [place] # (Auto) 0.7 Eos # (Auto) 0.4 Baso # (Auto) 0.0 WBC Differential . Differential Comment Auto diff final Sodium 143 Potassium 4.7 Chloride 110 H Carbon Dioxide 27.6 Anion Gap 5 BUN 13 Creatinine 0.80 Estimated GFR 80 L Random Glucose 92 Calcium 7.5 L Impressions ITS Impressions Foot X-Ray 04/21/18 11:39 CONCLUSION: No fracture, foot intact. Ankle X-Ray 04/22/18 00:00 CONCLUSION: Status post open ridge internal fixation. Discharge Plan Discharge Disposition Patient Disposition: 01 Discharge Home Discharge Condition Condition: Stable Discharge Order Discharge Orders: Discharge Order (Routine); Ordered 04/22/18 Ordered By: Sasmon Nogueira Hospitalist Clear for Discharge (Routine); Ordered 04/22/18 Ordered By: Rona Benson Physicians Team ED Provider: Franky Pacheco ED Midlevel Provider: Ryanne Green Primary Care Provider: Primary Care Jaz Rehman Attending Provider: Alexander Ritchie Other Providers: Samson Nogueira Rxs /Orders / Referrals /Forms Prescriptions: New hydrocodone-acetaminophen [[place]] 7.5-325 mg Tablet 1 tab PO Q4H Qty: 40 RF: 0 calcium carbonate-vitamin D3 [Calcium 500 + D] 500 mg(1,250mg) -400 unit tablet 1 tab PO BID 30 Days Qty: 60 RF: 0 Ambulatory Orders / Order Sets / DME: Crutch/Aluminum/Adult (1 each) (Routine) Location: Determined by Patient Ordered By: Rona Benson Walker With Front Wheels (1 each) (Routine) Location: Determined by Patient Ordered By: Isreal Pollard Referrals: Primary Care Jaz Rehman [Primary Care Provider] - See Instructions (F/U with PCP in 1 week) Samson Nogueira MD [Physician] - See Instructions (2 weeks) Status ED Status: Left Department
== END 2018-04-22 16:42 | disposition home or self-care (01) ==
LOC: NEPC 11:00 → NEDA 13:23 → N06 18:20
PROVIDERS: ADMIT Hospitalist; ATTEND Hospitalist
PROC: ORIFANK (2018-04-22 07:19)